=== PATIENT | female | born 1960 | race Caucasian/White ===

== ENCOUNTER → 2016-03-18 | Outpatient (CLI) | payer BC ==
--- NOTE | 2016-03-18 11:42 | CT ---
EXAMINATION TYPE: CT sinus wo con DATE OF EXAM: 03/18/2016 11:36 AM COMPARISON: NONE HISTORY: Chronic sinusitis. CT DLP: 556.9 mGycm Automated exposure control for dose reduction was used. FINDINGS: Visualized intracranial structures are normal. Soft tissues are unremarkable. The frontal sinuses are hypoplastic. The remainder of the sinuses have a normal appearance. Both infu ndibula are patent. IMPRESSION: 1. NO EVIDENCE OF ACUTE SINUSITIS OR CHRONIC SINUSITIS AT THIS TIME. 2. DEMONSTRATED PATENCY OF BOTH INFUNDIBULA.
== END | disposition home or self-care (01) ==
LOC: RADCTMAIN 11:16
PROVIDERS: ATTEND Otolaryngology
DX: J32.9 Chronic sinusitis, unspecified (principal)
CPT/HCPCS: 70486